=== PATIENT | female | born 1960 | race Caucasian/White ===

== ENCOUNTER 2022-09-03 06:18 | Day surgery (SDC) | payer OTHER ==
[~2022-09-03] VITALS: Ht 160 cm; Wt 84.0 kg
[2022-09-03] MEDS ORDERED: LIDOCAINE 4% 50 ML SOLUTION TP ONE (06:19)
[2022-09-03] MEDS ORDERED: ALBUTEROL SULFATE 2.5 MG/0.5 ML NEB SOLUTION NEB ONE (06:19)
[2022-09-03] MEDS ORDERED: BENZOCAINE 20% 50 MCG/SPRAY 57 GM TP ONE (06:19)
[2022-09-03] MEDS ORDERED: LIDOCAINE 2% 11 ML JELLY TP ONE (06:19)
[2022-09-03] MEDS ORDERED: SODIUM CHLORIDE 0.9% 1,000 ML IV ONE (06:30)
[2022-09-03 07:10] LABS: COVID AG,FIA SOURCE NASAL SWAB
[2022-09-03] MEDS ORDERED: METF-1211 PO (07:21)
[2022-09-03] MEDS ORDERED: SIMV-260 PO (07:21)
[2022-09-03] MEDS ORDERED: MONT-35 PO (07:21)
[2022-09-03] MEDS ORDERED: FentaNYL CITRATE PF 100 MCG/2 ML VIAL ONE (07:25)
[2022-09-03] MEDS ORDERED: MIDAZOLAM HCL 5 MG/ML VIAL ONE (07:26)
[2022-09-03] MEDS ORDERED: SODIUM CHLORIDE 0.9% 1,000 ML ONE (07:32)
[2022-09-03 08:01] LABS: GLUCOMETER DEV NAME(LOC) SDS.; GLUCOSE,POINT OF CARE 99 MG/DL (70-110)
[2022-09-03] MEDS ORDERED: MethylPREDNISolone SOD SUCC 125 MG/2 ML VIAL ONE (09:08)
[2022-09-03] MEDS ORDERED: MethylPREDNISolone SOD SUCC 125 MG/2 ML VIAL IVP ONE (09:15)
[2022-09-03] MEDS ORDERED: PROMETH/PHENYLEPHRINE/CODEINE 5 ML ORAL.SYG PO ONE (09:45)
[2022-09-03] MEDS ORDERED: OXYGEN THERAPY IH SCH (20:00)
== END 2022-09-03 11:15 | disposition home or self-care (01) ==
LOC: SURGERY 06:18
PROVIDERS: ATTEND Internal Medicine Critical Care Medicine
DX: J38.4 Edema of larynx (principal); B37.0 Candidal stomatitis; Z79.899 Other long term (current) drug therapy; Z98.890 Other specified postprocedural states
CPT/HCPCS: 31623; 82962; 87101; 87220; 87070; 88108; 88305; 31624; 94640; 71045; 87015; 87426; 87206; J3010; J2930; J2370; J2250; Q9967; J7030; C9803; J7613; Z7610

== ENCOUNTER 2022-12-03 06:35 | Day surgery (SDC) | payer OTHER ==
[~2022-12-03] VITALS: Ht 160 cm; Wt 81.0 kg
[~2022-12-03 06:35] MED LIST: METF-1211 PO; MONT-35 PO; SIMV-260 PO; SODIUM CHLORIDE 0.9% 1,000 ML IV ONE
[2022-12-03 07:41] LABS: GLUCOMETER DEV NAME(LOC) SDS.; GLUCOSE,POINT OF CARE 107 MG/DL (70-110)
[2022-12-03 07:52] LABS: COVID AG,FIA SOURCE NASOPHARYNGEAL
[2022-12-03] MEDS ORDERED: PROPOFOL 1% 20 ML VIAL IVP ONE (12:00)
== END 2022-12-03 10:10 | disposition home or self-care (01) ==
LOC: SURGERY 06:35
PROVIDERS: ATTEND Surgery
DX: K57.30 Diverticulosis of large intestine without perforation or abscess without bleeding (principal); K64.5 Perianal venous thrombosis; K63.89 Other specified diseases of intestine; E11.9 Type 2 diabetes mellitus without complications; I10 Essential (primary) hypertension; Z79.899 Other long term (current) drug therapy; E66.01 Morbid (severe) obesity due to excess calories; Z98.890 Other specified postprocedural states; Z20.822 Contact with and (suspected) exposure to COVID-19
CPT/HCPCS: 45378; 87426; 82962; C9803; J2704